=== PATIENT | female | born 1990 | race Caucasian/White ===

== ENCOUNTER 2016-11-15 05:12 | Emergency (ER) | payer MEDICAID ==
[2016-11-15 06:06] LABS: CHLORIDE,CL 100 mEq/L (98-106); SODIUM,NA 137 mEq/L (136-145)
[2016-11-15] MEDS ORDERED: Ondansetron 4 MG/2 ML SDV ONE (06:16)
[2016-11-15] MEDS ORDERED: HYDROmorphone 1 MG/ML Syringe IVPUSH ONE (06:19)
[2016-11-15] MEDS ORDERED: Ondansetron 4 MG in Sodium Chloride 0.9% 50 ML IV ONE (06:20)
[2016-11-15] MEDS ORDERED: Ondansetron 4 MG/2 ML SDV IVPUSH ONE (06:32)
--- NOTE | 2016-11-15 06:34 | EDM.PDOC ---
ED HPI GENERAL MEDICAL PROBLEM - General Chief Complaint: Abdominal Pain Stated Complaint: RLQ pain Time Seen by Provider: 11/15/16 05:28 Source of Information: Reports: Patient History Limitations: Reports: No Limitations - History of Present Illness INITIAL COMMENTS - FREE TEXT/NARRATIVE: Started having severe right lower quadrant abd pain 4 hours ago that is worsening Onset: Today, Gradual Location: Reports: Abdomen Quality: Reports: Sharp, Stabbing Severity: Severe Worsens with: Reports: None Associated Symptoms: Reports: No Other Symptoms Right Lower Abdominal Pain Score (Numeric/FACES): 6 - Related Data Allergies Allergy/AdvReac Type Severity Reaction Status Date / Time No Known Allergies Allergy Verified 11/15/16 05:12 Home Meds: Home Meds . [No Known Home Meds] 11/15/16 [History] Past Medical History HEENT History: Reports: None Cardiovascular History: Reports: Arrhythmia, Hypertension Gastrointestinal History: Reports: GERD, Hiatal Hernia, PUD Genitourinary History: Reports: None [employer]ING [employer] History: Reports: Spontaneous , Other (See Below) Other OB/BYN History: x4. 3 living 1 miscarriage Neurological History: Reports: Headaches, Chronic Psychiatric History: Reports: Anxiety, Depression - Past Surgical History HEENT Surgical History: Reports: Tonsillectomy GI Surgical History: Reports: Cholecystectomy Female Surgical History: Reports: Section, Other (See Below) Other Female Surgeries/Procedures: pt reported bleeding irregularly for past 3 months Neurological Surgical History: Reports: None Social & Family History - Family History Family Medical History: Noncontributory - Tobacco Use Smoking Status *Q: Current Every Day Smoker Years of Tobacco use: 10 Packs/Tins Daily: 0.5 - Alcohol Use Days Per Week of Alcohol Use: 2 Number of Drinks Per Day: 2 Total Drinks Per Week: 4 - Recreational Drug Use Recreational Drug Use: No ED ROS GENERAL - Review of Systems Review Of Systems: ROS reveals no pertinent complaints other than HPI. ED EXAM, GI/ABD - Physical Exam Exam: See Below Text/Narrative:: patient is writhing in pain, she has abdominal guarding, and rebound tenderness. Exam Limited By: No Limitations General Appearance: Alert Throat/Mouth: Normal Inspection Head: Atraumatic Neck: Normal Inspection Respiratory/Chest: No Respiratory Distress Cardiovascular: Normal Peripheral Pulses GI/Abdominal: Absent Bowel Sounds, Tenderness, Guarding, Rebound, Rigidity Rectal (Female) Exam: Normal Exam Back Exam: Normal Inspection Extremities: Normal Inspection Neurological: Alert, Oriented Skin Exam: Warm, Dry Course - Vital Signs Last Recorded V/S: Last Vital Signs Temp 97.1 F 11/15/16 05:14 Pulse 91 11/15/16 05:14 Resp 22 H 11/15/16 05:14 BP 172/107 H 11/15/16 05:14 Pulse Ox 98 11/15/16 05:14 - Orders/Labs/Meds Orders: Active Orders 24 hr Category Date Time Status Ondansetron [Zofran] 4 mg Med 11/15/16 06:20 Ordered Sodium Chloride 0.9% [Normal Saline] 50 ml IV Q8H Medication Orders Ondansetron HCl 4 mg/ Sodium (Chloride) 52 mls @ 100 mls/hr IV Q8H ONE Stop: 11/15/16 06:51 Labs: Laboratory Tests 11/15/16 11/15/16 11/15/16 Range/Units 05:45 05:45 05:55 WBC 13.3 H (5.0-10.0) 10^3/uL RBC 4.30 (4.00-5.50) 10^6/uL Hgb 13.2 (12.0-16.0) g/dL Hct 40.0 (37.0-47.0) % MCV 93.0 (82.0-94.0) fL MCH 30.7 (27.0-32.0) pg MCHC 33.0 (33.0-38.0) g/dL RDW Coeff of Sarah 14.7 (11.0-15.0) % Plt Count 417 H (150-400) 10^3/uL Neut % (Auto) 61.2 (35-85) % Lymph % (Auto) 25.0 (10-55) % [place] % (Auto) 9.4 (0-16) % Eos % (Auto) 3.9 (0-5) % Baso % (Auto) 0.5 (0-3) % Neut # (Auto) 8.12 H (1.80-7.00) 10^3/uL Lymph # (Auto) 3.31 (1.00-4.80) 10^3/uL [place] # (Auto) 1.24 H (0.00-0.80) 10^3/uL Eos # (Auto) 0.52 H (0.00-0.45) 10^3/uL Baso # (Auto) 0.06 10^3/uL Sodium 137 (136-145) mEq/L Potassium 3.9 (3.5-5.0) mEq/L Chloride 100 (98-106) mEq/L Carbon Dioxide 31 (21-32) mmol/L BUN 18 D (7-18) mg/dL Creatinine 0.7 (0.6-1.0) mg/dL Est Cr Clr Drug Dosing 95.48 mL/min Estimated GFR (MDRD) > 60 (>=60) mL/min Glucose 87 (75-99) mg/dL Calcium 9.7 (8.4-10.1) mg/dL Total Bilirubin 0.3 (0.0-1.0) mg/dL AST 8 L (15-37) U/L ALT 22 (12-78) U/L Alkaline Phosphatase 102 (46-116) U/L Total Protein 6.9 (6.4-8.2) g/dL Albumin 3.8 (3.4-5.0) g/dL Amylase 38 (25-115) U/L Urine Color Yellow (YELLOW) Urine Appearance Slightly cloudy (CLEAR) Urine pH 6.0 (4.5-8.0) Ur Specific [place] 1.017 (1.003-1.020) Urine Protein Negative (NEGATIVE) mg/dL Urine Glucose (UA) Negative (NEGATIVE) mg/dL Urine Ketones Negative (NEGATIVE) mg/dL Urine Occult Blood Negative (NEGATIVE) Urine Nitrite Negative (NEGATIVE) Urine Bilirubin Negative (NEGATIVE) Urine Urobilinogen 0.2 (0.2-1.0) EU/dL Ur Leukocyte Esterase Negative (NEGATIVE) Urine RBC Not seen (0-5) /HPF Urine WBC 0-5 (0-5) /HPF Ur Squamous Epith Cells Few H (NOT SEEN) /HPF Amorphous Sediment Few H (NOT SEEN) /HPF Urine HCG, Qual 11/15/16 Range/Units 05:55 WBC (5.0-10.0) 10^3/uL RBC (4.00-5.50) 10^6/uL Hgb (12.0-16.0) g/dL Hct (37.0-47.0) % MCV (82.0-94.0) fL MCH (27.0-32.0) pg MCHC (33.0-38.0) g/dL RDW Coeff of Sarah (11.0-15.0) % Plt Count (150-400) 10^3/uL Neut % (Auto) (35-85) % Lymph % (Auto) (10-55) % [place] % (Auto) (0-16) % Eos % (Auto) (0-5) % Baso % (Auto) (0-3) % Neut # (Auto) (1.80-7.00) 10^3/uL Lymph # (Auto) (1.00-4.80) 10^3/uL [place] # (Auto) (0.00-0.80) 10^3/uL Eos # (Auto) (0.00-0.45) 10^3/uL Baso # (Auto) 10^3/uL Sodium (136-145) mEq/L Potassium (3.5-5.0) mEq/L Chloride (98-106) mEq/L Carbon Dioxide (21-32) mmol/L BUN (7-18) mg/dL Creatinine (0.6-1.0) mg/dL Est Cr Clr Drug Dosing mL/min Estimated GFR (MDRD) (>=60) mL/min Glucose (75-99) mg/dL Calcium (8.4-10.1) mg/dL Total Bilirubin (0.0-1.0) mg/dL AST (15-37) U/L ALT (12-78) U/L Alkaline Phosphatase (46-116) U/L Total Protein (6.4-8.2) g/dL Albumin (3.4-5.0) g/dL Amylase (25-115) U/L Urine Color (YELLOW) Urine Appearance (CLEAR) Urine pH (4.5-8.0) Ur Specific [place] (1.003-1.020) Urine Protein (NEGATIVE) mg/dL Urine Glucose (UA) (NEGATIVE) mg/dL Urine Ketones (NEGATIVE) mg/dL Urine Occult Blood (NEGATIVE) Urine Nitrite (NEGATIVE) Urine Bilirubin (NEGATIVE) Urine Urobilinogen (0.2-1.0) EU/dL Ur Leukocyte Esterase (NEGATIVE) Urine RBC (0-5) /HPF Urine WBC (0-5) /HPF Ur Squamous Epith Cells (NOT SEEN) /HPF Amorphous Sediment (NOT SEEN) /HPF Urine HCG, Qual Negative Meds: Medications Generic Name Dose Route Start Last Admin Trade Name Freq PRN Reason Stop Dose Admin Ondansetron HCl 4 mg/ Sodium 52 mls @ 100 mls/hr 11/15/16 06:20 Chloride IV 11/15/16 06:51 Q8H ONE Discontinued Medications Generic Name Dose Route Start Last Admin Trade Name Freq PRN Reason Stop Dose Admin Hydromorphone HCl 1 mg 11/15/16 06:19 Dilaudid IVPUSH 11/15/16 06:20 ONETIME ONE Departure - Departure Time of Disposition: 06:31 (Will transfer to [facility] for CT of abd/pelvis) Disposition: DC/Tfer to Acute Hospital 02 Condition: Fair Clinical Impression: Abdominal pain - Discharge Information Forms: ED Department Discharge - My Orders Last 24 Hours: My Active Orders 11/15/16 06:20 Ondansetron [Zofran] 4 mg Sodium Chloride 0.9% [Normal Saline] 50 ml IV Q8H - Assessment/Plan Last 24 Hours: My Active Orders 11/15/16 06:20 Ondansetron [Zofran] 4 mg Sodium Chloride 0.9% [Normal Saline] 50 ml IV Q8H
[2016-11-15 06:46] VITALS: BP 177/91
[2016-11-15] MEDS ORDERED: Acetaminophen/HYDROcodone 325-5 MG Tab PO ONE (07:08)
== END 2016-11-15 07:19 | disposition critical access hospital (66) ==
LOC: CC.ED 05:12
DX: R10.31 Right lower quadrant pain (principal); I10 Essential (primary) hypertension; K21.9 Gastro-esophageal reflux disease without esophagitis; F17.210 Nicotine dependence, cigarettes, uncomplicated; Z98.890 Other specified postprocedural states; Z90.49 Acquired absence of other specified parts of digestive tract
CPT/HCPCS: 80053; 81001; 81025; 82150; 85025; 96374; 96375; 99284; A9270; J1170; J2405

== ENCOUNTER 2016-12-09 15:15 | Emergency (ER) | payer MEDICAID ==
[2016-12-09] MEDS ORDERED: Lidocaine 1% 20 ML MDV ONE (15:24)
[2016-12-09 15:41] VITALS: BP 142/87
[2016-12-09] MEDS ORDERED: Lidocaine 1% 20 ML MDV INJECT ONE (16:01)
[2016-12-09] MEDS ORDERED: Bacitracin/Neomycin/Polymyxin B Oint 0.9 GM U/D Packet TOP ONE (16:01)
--- NOTE | 2016-12-09 16:10 | EDM.PDOC ---
ED HPI GENERAL MEDICAL PROBLEM - General Chief Complaint: Laceration Stated Complaint: knee lac Time Seen by Provider: 12/09/16 15:45 Source of Information: Reports: Patient History Limitations: Reports: No Limitations - History of Present Illness INITIAL COMMENTS - FREE TEXT/NARRATIVE: Was going down a homemade slip and slide and sustained a laceration to her right distal leg. It is 4 cm in length in a slight v shape. Minimal amount of bleeding noted. It is gapping at this time. Also has pain in the right great toe. Is able to move it but does cause discomfort. Location: Reports: Lower Extremity, Right Quality: Reports: Ache - Related Data Allergies Allergy/AdvReac Type Severity Reaction Status Date / Time No Known Allergies Allergy Verified 12/09/16 15:19 Home Meds: Home Meds . [No Known Home Meds] 11/15/16 [History] Past Medical History HEENT History: Reports: None Cardiovascular History: Reports: Arrhythmia, Hypertension Gastrointestinal History: Reports: GERD, Hiatal Hernia, PUD Genitourinary History: Reports: None [employer] History: Reports: Spontaneous , Other (See Below) Other OB/BYN History: x4. 3 living 1 miscarriage Neurological History: Reports: Headaches, Chronic Psychiatric History: Reports: Anxiety, Depression - Past Surgical History HEENT Surgical History: Reports: Tonsillectomy GI Surgical History: Reports: Cholecystectomy Female Surgical History: Reports: Section, Other (See Below) Other Female Surgeries/Procedures: pt reported bleeding irregularly for past 3 months Neurological Surgical History: Reports: None Social & Family History - Family History Family Medical History: Noncontributory - Tobacco Use Smoking Status *Q: Current Every Day Smoker Years of Tobacco use: 10 Packs/Tins Daily: 0.5 - Alcohol Use Days Per Week of Alcohol Use: 2 Number of Drinks Per Day: 2 Total Drinks Per Week: 4 - Recreational Drug Use Recreational Drug Use: No ED ROS GENERAL - Review of Systems Review Of Systems: See Below Constitutional: Denies: Fever, Chills Musculoskeletal: Reports: Leg Pain Skin: Reports: Wound ED EXAM, SKIN/RASH Exam: See Below Exam Limited By: No Limitations General Appearance: Alert, WD/WN, Mild Distress Ears: Normal External Exam, Normal Canal, Normal TMs Nose: Normal Inspection, Normal Mucosa Throat/Mouth: Normal Inspection, Normal Oropharynx, No Airway Compromise Neck: Normal Inspection, Supple Respiratory/Chest: No Respiratory Distress, Lungs Clear, Normal Breath Sounds Cardiovascular: Regular Rate, Rhythm Extremities: Other (right great toe is tender but is able to go through ROM without difficulty.) Neurological: Alert, Oriented Skin: Warm, Dry, Wound/Incision (4 cm laceration noted to the anterior lower leg below the knee. It is in a slight v shape and gapping open.) ED SKIN PROCEDURES - Laceration/Wound Repair Right Anterior Distal Leg Lac/Wound length In cm: 4 Appearance: Irregular, Clean Distal NVT: Neuro & Vascular Intact Anesthetic Type: Local Local Anesthesia - Lidocaine (Xylocaine): 1% Plain Local Anesthetic Volume: 3cc Exploration/Debridement/Repair: In a Bloodless Field Suture Size: 4-0 # of Sutures: 9 Suture Type: Nylon, Interrupted Sterile Dressing Applied: Nurse Tetanus Status Addressed: Yes Complications: No Course - Vital Signs Last Recorded V/S: Last Vital Signs Temp 98.2 F 12/09/16 15:35 Pulse 82 12/09/16 15:35 Resp 18 12/09/16 15:35 BP 142/87 H 12/09/16 15:35 Pulse Ox 98 12/09/16 15:35 - Orders/Labs/Meds Meds: Medications Discontinued Medications Generic Name Dose Route Start Last Admin Trade Name [place] PRN Reason Stop Dose Admin Lidocaine HCl Confirm 12/09/16 15:24 12/09/16 16:02 Xylocaine 1% Administered 12/09/16 15:25 Not Given Dose 20 ml .ROUTE .STK-MED ONE Lidocaine HCl 20 ml 12/09/16 16:01 12/09/16 16:02 Xylocaine 1% INJECT 12/09/16 16:02 20 ml ONETIME ONE Administration Neomycin/Polymyxin/Bacitracin 1 each 12/09/16 16:01 12/09/16 16:02 Triple Antibiotic Oint TOP 12/09/16 16:02 1 each ONETIME ONE Administration Departure - Departure Time of Disposition: 16:08 Disposition: Home, Self-Care 01 Condition: Good Clinical Impression: Laceration of right lower leg Qualifiers: Encounter type: initial encounter Qualified Code(s): S81.811A - Laceration without foreign body, right lower leg, initial encounter - Discharge Information Instructions: Laceration Care, Adult, [id number] Referrals: Provider,Unknown [Ordering Only Provider] - Forms: ED Department Discharge Additional Instructions: keep dry and clean. May shower but do not soak it. cover with antibiotic ointment and dressing appt in clinic in about 10 days to have sutures out If any signs of infection then recheck sooner
== END 2016-12-09 16:15 | disposition home or self-care (01) ==
LOC: CC.ED 15:15
DX: S81.811A Laceration without foreign body, right lower leg, initial encounter (principal); I10 Essential (primary) hypertension; K21.9 Gastro-esophageal reflux disease without esophagitis; F17.210 Nicotine dependence, cigarettes, uncomplicated; Z98.890 Other specified postprocedural states; Z90.49 Acquired absence of other specified parts of digestive tract; W01.0XXA Fall on same level from slipping, tripping and stumbling without subsequent striking against object, initial encounter
CPT/HCPCS: 12002; 99282

== ENCOUNTER 2016-12-22 11:50 | Emergency (ER) | payer MEDICAID ==
[2016-12-22 11:54] VITALS: BP 122/74
[2016-12-22] MEDS ORDERED: Lactated Ringers 1,000 ML IV SCH (12:30)
[2016-12-22 12:40] LABS: CHLORIDE,CL 105 mEq/L (98-106); SODIUM,NA 138 mEq/L (136-145)
--- NOTE | 2016-12-22 14:24 | EDM.PDOC ---
ED HPI GENERAL MEDICAL PROBLEM - General Chief Complaint: General Stated Complaint: fainted, fall Time Seen by Provider: 12/22/16 12:16 Source of Information: Reports: Patient, EMS History Limitations: Reports: No Limitations - History of Present Illness INITIAL COMMENTS - FREE TEXT/NARRATIVE: Patient presents to ED after a syncopal episode while at the bank. Patient states she was there and standing at the [employer] desk. States she started to feel lightheaded and got warm prior to the event. Did not sustain any injuries but admits her back is somewhat sore now. She was in the clinic this am and had a confirmed test. Does admit that she has been very tired lately. Denies being ill as of late. No fevers. Did eat breakfast this am. States still feels somewhat lightheaded. Is very tearful. Admits that she is unsure physically how she will handle another . She relates that she had a difficult last time and was told she shouldn't have any more children but has not taken any specific precautions to prevent this. She states she was seen in [place] a month ago and had an ovarian cyst and states she was told she may need to have a hysterectomy so was not expecting this news today. Onset: Today, Sudden Duration: Minutes:, Waxing/Waning Location: Reports: Generalized Severity: Mild Improves with: Reports: Rest Associated Symptoms: Reports: Syncope, Weakness. Denies: Confusion, Chest Pain , Headaches, Malaise, Nausea/Vomiting Neck Pain Score (Numeric/FACES): 6 - Related Data Allergies Allergy/AdvReac Type Severity Reaction Status Date / Time No Known Allergies Allergy Verified 12/22/16 11:55 Home Meds: Home Meds . [No Known Home Meds] 11/15/16 [History] Past Medical History HEENT History: Reports: None Cardiovascular History: Reports: Arrhythmia, Hypertension Gastrointestinal History: Reports: GERD, Hiatal Hernia, PUD Genitourinary History: Reports: None YARD PERSON History: Reports: , Spontaneous , Other (See Below) Other OB/BYN History: x5. 3 living 1 miscarriage Neurological History: Reports: Headaches, Chronic, Seizure, Other (See Below) Other Neuro History: reports dizziness happesn oftern Psychiatric History: Reports: Anxiety, Depression - Infectious Disease History Infectious Disease History: Reports: Chicken Pox - Past Surgical History HEENT Surgical History: Reports: Tonsillectomy Cardiovascular Surgical History: Reports: None GI Surgical History: Reports: Cholecystectomy Female Surgical History: Reports: Section, Other (See Below) Other Female Surgeries/Procedures: cyst burst on ovary about 1 month ago Neurological Surgical History: Reports: None Social & Family History - Family History Family Medical History: Noncontributory - Tobacco Use Smoking Status *Q: Current Every Day Smoker Years of Tobacco use: 8 Packs/Tins Daily: 0.5 - Alcohol Use Days Per Week of Alcohol Use: 2 Number of Drinks Per Day: 2 Total Drinks Per Week: 4 - Recreational Drug Use Recreational Drug Use: Yes Drug Use in Last 12 Months: Yes Recreational Drug Type: Reports: Marijuana/Hashish Recreational Drug Use Frequency: Not Used In Over 1 Month ED ROS GENERAL - Review of Systems Review Of Systems: See Below Constitutional: Reports: Malaise, Fatigue. Denies: Fever, Chills, Decreased Appetite HEENT: Reports: Vertigo. Denies: Ear Discharge, Ear Pain, Sinus Problem, Throat Pain, Throat Swelling, Vision Change Respiratory: Denies: Shortness of Breath, Cough Cardiovascular: Reports: Lightheadedness. Denies: Chest Pain, Edema Endocrine: Reports: Fatigue GI/Abdominal: Denies: Abdominal Pain, Diarrhea, Hematochezia, Melena, Nausea, Vomiting : Reports: No Symptoms Musculoskeletal: Reports: Back Pain Skin: Reports: No Symptoms Neurological: Reports: Dizziness, Weakness Psychiatric: Reports: No Symptoms ED EXAM, GENERAL - Physical Exam Exam: See Below Exam Limited By: No Limitations General Appearance: Alert, WD/WN, No Apparent Distress Eye Exam: Bilateral Eye: EOMI, PERRL Ears: Normal External Exam, Normal TMs Nose: Normal Inspection, Normal Mucosa, No Blood Throat/Mouth: Normal Inspection, Normal Oropharynx Head: Normocephalic Neck: Normal Inspection, Supple, Non-Tender Respiratory/Chest: No Respiratory Distress, Lungs Clear, Normal Breath Sounds Cardiovascular: Regular Rate, Rhythm GI/Abdominal: Normal Bowel Sounds, Soft, Non-Tender Back Exam: Normal Inspection, Full Range of Motion Extremities: Normal Inspection, Normal Range of Motion Neurological: Alert, Oriented, CN II-XII Intact, No Motor/Sensory Deficits Psychiatric: Tearful Skin Exam: Warm, Dry Course - Vital Signs Last Recorded V/S: Last Vital Signs Temp 97.6 F 12/22/16 11:51 Pulse 92 12/22/16 11:51 Resp 16 12/22/16 11:51 BP 122/74 12/22/16 11:51 Pulse Ox 98 12/22/16 11:51 - Orders/Labs/Meds Orders: Active Orders 24 hr Category Date Time Status Lactated Ringers [Ringers, Lactated] 1,000 ml Med 12/22/16 12:30 Active IV ASDIRECTED Medication Orders Lactated Ringer's (Ringers, Lactated) 1,000 mls @ 250 mls/hr IV ASDIRECTED BELA Last Infusion: 12/22/16 14:45 Dose: 250 mls/hr Admin: 12/22/16 12:36 Dose: 125 mls/hr Labs: Laboratory Tests 12/22/16 12/22/16 12/22/16 Range/Units 12:31 12:31 14:45 WBC 10.2 H (5.0-10.0) 10^3/uL RBC 4.00 (4.00-5.50) 10^6/uL Hgb 12.3 (12.0-16.0) g/dL Hct 37.3 (37.0-47.0) % MCV 93.3 (82.0-94.0) fL MCH 30.8 (27.0-32.0) pg MCHC 33.0 (33.0-38.0) g/dL RDW Coeff of Sarah 14.6 (11.0-15.0) % Plt Count 328 (150-400) 10^3/uL Neut % (Auto) 67.1 (35-85) % Lymph % (Auto) 21.6 (10-55) % [place] % (Auto) 8.3 (0-16) % Eos % (Auto) 2.6 (0-5) % Baso % (Auto) 0.4 (0-3) % Neut # (Auto) 6.83 (1.80-7.00) 10^3/uL Lymph # (Auto) 2.20 (1.00-4.80) 10^3/uL [place] # (Auto) 0.84 H (0.00-0.80) 10^3/uL Eos # (Auto) 0.26 (0.00-0.45) 10^3/uL Baso # (Auto) 0.04 10^3/uL Sodium 138 (136-145) mEq/L Potassium 3.7 (3.5-5.0) mEq/L Chloride 105 (98-106) mEq/L Carbon Dioxide 25 (21-32) mmol/L BUN 13 (7-18) mg/dL Creatinine 0.7 (0.6-1.0) mg/dL Est Cr Clr Drug Dosing 95.48 mL/min Estimated GFR (MDRD) > 60 (>=60) mL/min Glucose 106 H (75-99) mg/dL Calcium 8.8 (8.4-10.1) mg/dL Urine Color Yellow (YELLOW) Urine Appearance Clear (CLEAR) Urine pH 6.5 (4.5-8.0) Ur Specific [place] 1.010 (1.003-1.020) Urine Protein Negative (NEGATIVE) mg/dL Urine Glucose (UA) Negative (NEGATIVE) mg/dL Urine Ketones Negative (NEGATIVE) mg/dL Urine Occult Blood Negative (NEGATIVE) Urine Nitrite Negative (NEGATIVE) Urine Bilirubin Negative (NEGATIVE) Urine Urobilinogen 0.2 (0.2-1.0) EU/dL Ur Leukocyte Esterase Negative (NEGATIVE) Urine RBC Not seen (0-5) /HPF Urine WBC 0-5 (0-5) /HPF Ur Squamous Epith Cells Occasional H (NOT SEEN) /HPF Meds: Medications Generic Name Dose Route Start Last Admin Trade Name Freq PRN Reason Stop Dose Admin Lactated Ringer's 1,000 mls @ 250 mls/hr 12/22/16 12:30 12/22/16 14:45 Ringers, Lactated IV 250 mls/hr ASDIRECTED BELA Infusion - Re-Assessments/Exams Free Text/Narrative Re-Assessment/Exam: 12/22/16 1300-Patient resting well. Labs reviewed and are normal. Very tearful in dealing with the circumstances from today. Has not voided yet. IV fluids infusing. 12/22/16 15:15 Urine clear. Doing well. Departure - Departure Time of Disposition: 15:15 Disposition: Home, Self-Care 01 Condition: Good Clinical Impression: Syncope - Discharge Information Forms: ED Department Discharge Additional Instructions: 1. Rest 2. Push fluids 3. Small frequent meals 4. vitamins 5. Follow up with PCP if any ongoing concerns. - My Orders Last 24 Hours: My Active Orders 12/22/16 12:30 Lactated Ringers [Ringers, Lactated] 1,000 ml IV ASDIRECTED - Assessment/Plan Last 24 Hours: My Active Orders 12/22/16 12:30 Lactated Ringers [Ringers, Lactated] 1,000 ml IV ASDIRECTED
== END 2016-12-22 15:48 | disposition home or self-care (01) ==
LOC: CC.ED 11:50
DX: R55 Syncope and collapse (principal); K21.9 Gastro-esophageal reflux disease without esophagitis; I10 Essential (primary) hypertension; F17.210 Nicotine dependence, cigarettes, uncomplicated; Z90.49 Acquired absence of other specified parts of digestive tract
CPT/HCPCS: 80048; 81001; 85025; 93005; 96365; 96366; 99284; J7120; 36415; 96360; 96361

== ENCOUNTER 2017-02-16 09:09 | Emergency (ER) | payer SELFPAY ==
[2017-02-16 09:18] VITALS: BP 101/78
[2017-02-16] MEDS ORDERED: fentaNYL 100 MCG/2 ML SDV IM ONE (09:35)
--- NOTE | 2017-02-16 10:49 | EDM.PDOC ---
ED HPI GENERAL MEDICAL PROBLEM - General Chief Complaint: PICKING TECH Problem Stated Complaint: CRAMPS Time Seen by Provider: 02/16/17 09:22 Source of Information: Reports: Patient History Limitations: Reports: No Limitations - History of Present Illness INITIAL COMMENTS - FREE TEXT/NARRATIVE: Patient presents to ED with complaints of heavy vaginal bleeding and cramping. Admits to an at [facility] in [place] 3 weeks ago. Had minimal spotting right after the procedure. Started having heavy bleeding 3 days ago but today it is much worse and the cramping is more severe. States she is changing her tampon every 1 hour. Denies feeling lightheaded. Denies nausea. Does admit to feeling very anxious. Onset: Today Onset Date: 02/13/17 Duration: Day(s): Location: Reports: Pelvis Quality: Reports: Stabbing Severity: Moderate Associated Symptoms: Reports: Other (anxiety). Denies: Nausea/Vomiting Pelvic Pain Score (Numeric/FACES): 7 - Related Data Allergies Allergy/AdvReac Type Severity Reaction Status Date / Time No Known Allergies Allergy Verified 02/16/17 09:18 Home Meds: Home Meds . [No Known Home Meds] 11/15/16 [History] Past Medical History HEENT History: Reports: None Cardiovascular History: Reports: Arrhythmia, Hypertension Gastrointestinal History: Reports: GERD, Hiatal Hernia, PUD Genitourinary History: Reports: None PICKING TECH History: Reports: , Spontaneous , Other (See Below) Other OB/BYN History: x5. 3 living 1 miscarriage Neurological History: Reports: Headaches, Chronic, Seizure, Other (See Below) Other Neuro History: reports dizziness happesn oftern Psychiatric History: Reports: Anxiety, Depression - Infectious Disease History Infectious Disease History: Reports: Chicken Pox - Past Surgical History HEENT Surgical History: Reports: Tonsillectomy Cardiovascular Surgical History: Reports: None GI Surgical History: Reports: Cholecystectomy Female Surgical History: Reports: Section, D&C, Other (See Below) Other Female Surgeries/Procedures: cyst burst on ovary about 1 month ago Neurological Surgical History: Reports: None Social & Family History - Family History Family Medical History: Noncontributory - Tobacco Use Smoking Status *Q: Current Every Day Smoker Years of Tobacco use: 10 Packs/Tins Daily: 1 - Caffeine Use Caffeine Use: Reports: Soda - Alcohol Use Days Per Week of Alcohol Use: 2 Number of Drinks Per Day: 2 Total Drinks Per Week: 4 - Recreational Drug Use Recreational Drug Use: No Drug Use in Last 12 Months: Yes Recreational Drug Type: Reports: Marijuana/Hashish Recreational Drug Use Frequency: Not Used In Over 1 Month ED ROS GENERAL - Review of Systems Review Of Systems: See Below Constitutional: Reports: Weakness. Denies: Fever, Chills, Malaise, Decreased Appetite HEENT: Reports: No Symptoms Respiratory: Denies: Shortness of Breath, Cough Cardiovascular: Denies: Chest Pain, Edema, Lightheadedness Endocrine: Reports: Fatigue GI/Abdominal: Reports: Abdominal Pain. Denies: Nausea, Vomiting : Reports: No Symptoms Musculoskeletal: Reports: No Symptoms Skin: Reports: No Symptoms Psychiatric: Reports: Anxiety ED EXAM, RENAL/ - Physical Exam Exam: See Below Exam Limited By: No Limitations General Appearance: Alert, WD/WN, Mild Distress Ears: Normal External Exam, Normal TMs Nose: Normal Inspection, Normal Mucosa, No Blood Throat/Mouth: Normal Inspection, Normal Oropharynx Head: Normocephalic Neck: Normal Inspection, Supple, Non-Tender Respiratory/Chest: No Respiratory Distress, Lungs Clear, Normal Breath Sounds Cardiovascular: Regular Rate, Rhythm GI/Abdominal: Normal Bowel Sounds, Soft, Tender (suprapubic tenderness) Extremities: Normal Inspection, No Pedal Edema Neurological: Alert, Oriented Skin Exam: Warm, Dry Course - Vital Signs Last Recorded V/S: Last Vital Signs Temp 97.5 F 02/16/17 09:14 Pulse 111 H 02/16/17 09:14 Resp 22 H 02/16/17 09:14 BP 101/78 02/16/17 09:14 Pulse Ox 100 02/16/17 09:14 - Orders/Labs/Meds Orders: Active Orders 24 hr Category Date Time Status Transvaginal Non OB [US] Stat Exams 02/16/17 09:13 Taken Labs: Laboratory Tests 02/16/17 Range/Units 10:19 WBC 11.2 H (5.0-10.0) 10^3/uL RBC 4.21 (4.00-5.50) 10^6/uL Hgb 13.2 (12.0-16.0) g/dL Hct 40.0 (37.0-47.0) % MCV 95.0 H (82.0-94.0) fL MCH 31.4 (27.0-32.0) pg MCHC 33.0 (33.0-38.0) g/dL RDW Coeff of Sarah 14.4 (11.0-15.0) % Plt Count 359 (150-400) 10^3/uL Neut % (Auto) 67.3 (35-85) % Lymph % (Auto) 22.2 (10-55) % Richardson % (Auto) 6.7 (0-16) % Eos % (Auto) 3.2 (0-5) % Baso % (Auto) 0.6 (0-3) % Neut # (Auto) 7.52 H (1.80-7.00) 10^3/uL Lymph # (Auto) 2.48 (1.00-4.80) 10^3/uL Richardson # (Auto) 0.75 (0.00-0.80) 10^3/uL Eos # (Auto) 0.36 (0.00-0.45) 10^3/uL Baso # (Auto) 0.07 10^3/uL Meds: Medications Discontinued Medications Generic Name Dose Route Start Last Admin Trade Name Kbq PRN Reason Stop Dose Admin Fentanyl 50 mcg 02/16/17 09:35 02/16/17 09:40 Sublimaze IM 02/16/17 09:36 50 mcg ONETIME ONE Administration - Re-Assessments/Exams Free Text/Narrative Re-Assessment/Exam: 02/16/17 Pelvic ultrasound is not noted to be abnormal per tech, no retained products. Hemoglobin 13.4, stable. Departure - Departure Time of Disposition: 10:47 Disposition: Home, Self-Care 01 Condition: Fair Clinical Impression: Pain in pelvis - Discharge Information Referrals: Ernie Moreno MD [Primary Care Provider] - Forms: ED Department Discharge Additional Instructions: 1. Push fluids 2. [place] 5/325 1-2 tabs every 6 hours for pain as needed 3. If bleeding worsens or do not feel improvement in the next 24 hours, need to return for further treatment 4. Contact us with any questions - My Orders Last 24 Hours: My Active Orders 02/16/17 09:13 Transvaginal Non OB [US] Stat - Assessment/Plan Last 24 Hours: My Active Orders 02/16/17 09:13 Transvaginal Non OB [US] Stat
== END 2017-02-16 10:55 | disposition home or self-care (01) ==
LOC: CC.ED 09:09
DX: R10.2 Pelvic and perineal pain (principal); F17.210 Nicotine dependence, cigarettes, uncomplicated
CPT/HCPCS: 36415; 76830; 85025; 96372; 99284; J3010

== ENCOUNTER 2022-09-07 06:54 | Emergency (ER) | payer MEDICAID ==
[2022-09-07] MEDS ORDERED: Sodium Chloride 0.9% 1,000 ML IV ONE ×2 (07:05→08:11)
[2022-09-07] MEDS ORDERED: Ondansetron 4 MG/2 ML SDV IVPUSH STA (07:07)
[2022-09-07 07:32] VITALS: BP 125/95; PULSE 80
[2022-09-07 07:37] LABS: BASOPHILS ABSOLUTE AUTO 0.03 10^3/uL (0.00-0.50); BASOPHILS PERCENT AUTO 0.2 % (0-1); EOSINOPHILS ABSOLUTE AUTO 0.03 10^3/uL (0.00-1.50); EOSINOPHILS PERCENT AUTO 0.2 % (0-6); HEMOGLOBIN 11.8 g/dL (12.0-16.0); IMMATURE GRAN ABSOLUTE AUTO 0.05 10^3/uL (0.00-0.49); IMMATURE GRAN PERCENT AUTO 0.3 % (0.0-4.9); LYMPHOCYTES ABSOLUTE AUTO 1.75 10^3/uL (0.60-5.00); LYMPHOCYTES PERCENT AUTO 9.9 % (24-44); MEAN CORPUSCULAR HEMOGLOBIN 33.1 pg (27.0-32.0); MEAN CORPUSCULAR HGB CONC 34.7 g/dL (32.0-36.0); MEAN CORPUSCULAR VOLUME 95.2 fL (83.0-97.0); MONOCYTES ABSOLUTE AUTO 0.84 10^3/uL (0.00-1.50); MONOCYTES PERCENT AUTO 4.8 % (0-10); NEUTROPHILS ABSOLUTE AUTO 14.97 x10^3/uL (1.80-8.00); NEUTROPHILS PERCENT AUTO 84.6 % (41-71); PLATELET COUNT,PLT 430 10^3/uL (150-400); RED BLOOD CELL COUNT 3.57 x10^6/uL (4.00-5.50); WHITE BLOOD CELL COUNT,WBC 17.7 10^3/uL (4.0-11.0)
[2022-09-07 07:42] LABS: ALANINE AMINOTRANSFERASE,ALT 21 U/L (12-78); ALBUMIN 2.7 g/dL (3.4-5.0); ALKALINE PHOSPHATASE 103 U/L (46-116); ASPARTATE AMNIOTRANSFERASE,AST 12 U/L (15-37); BILIRUBIN TOTAL 0.3 mg/dL (0.0-1.0); BLOOD UREA NITROGEN,BUN 8 mg/dL (7-18); CALCIUM 8.4 mg/dL (8.4-10.1); CARBON DIOXIDE,CO2 22 mmol/L (21-32); CHLORIDE,CL 101 mEq/L (98-106); CREATININE 0.5 mg/dL (0.6-1.0); EST CRCL DRUG DOSING (CG) 120.76 mL/min; GLUCOSE RANDOM 121 mg/dL (75-99); POTASSIUM,K 3.6 mEq/L (3.5-5.0); PROTEIN TOTAL,TP 6.2 g/dL (6.4-8.2); SODIUM,NA 137 mEq/L (136-145)
[2022-09-07 07:43] LABS: C-REACTIVE PROTEIN < 0.2 mg/dL (0.2-0.8); ESTIMATED GFR 127 mL/min (>=60)
[2022-09-07 08:55] LABS: APPEARANCE,URINE CLOUDY (CLEAR); BILIRUBIN,URINE NEGATIVE (NEGATIVE); COLOR,URINE YELLOW (YELLOW); GLUCOSE,URINE NEGATIVE (NEGATIVE); KETONES,URINE 80 mg/dL (NEGATIVE); LEUKOCYTE ESTERASE,URINE NEGATIVE (NEGATIVE); NITRITE,URINE NEGATIVE (NEGATIVE); OCCULT BLOOD,URINE NEGATIVE (NEGATIVE); PROTEIN,URINE 100 mg/dL (NEGATIVE)
[2022-09-07 09:01] LABS: BACTERIA,URINE FEW /HPF (NOT SEEN); EPITHELIAL CELLS,URINE MODERATE /HPF (NOT SEEN); MUCUS,URINE FEW /HPF (NOT SEEN); RBC,URINE NOT SEEN /HPF (0-5); WBC,URINE 0-5 /HPF (0-5)
== END 2022-09-07 09:25 | disposition home or self-care (01) ==
LOC: CC.ED 06:54
DX: K52.9 Noninfective gastroenteritis and colitis, unspecified (principal); I10 Essential (primary) hypertension; Z79.899 Other long term (current) drug therapy
CPT/HCPCS: 36415; 80053; 81001; 85025; 86140; 96361; 96374; 99284; 99284-25; J2405; J7030

== ENCOUNTER 2022-11-30 15:41 | Emergency (ER) | payer MEDICAID ==
[2022-11-30] MEDS: Morphine 2 MG/ML SYRINGE IVPUSH STA (16:11)
[2022-11-30] MEDS: Ondansetron 4 MG/2 ML SDV IVPUSH PRN (16:15)
[2022-11-30] MEDS: Sodium Chloride 0.9% 1,000 ML IV ONE (16:15)
[2022-11-30 16:19] LABS: BASOPHILS ABSOLUTE AUTO 0.08 10^3/uL (0.00-0.50); BASOPHILS PERCENT AUTO 0.6 % (0-1); EOSINOPHILS ABSOLUTE AUTO 0.43 10^3/uL (0.00-1.50); EOSINOPHILS PERCENT AUTO 3.1 % (0-6); HEMATOCRIT 34.9 % (37.0-47.0); HEMOGLOBIN 11.5 g/dL (12.0-16.0); IMMATURE GRAN ABSOLUTE AUTO 0.02 10^3/uL (0.00-0.49); IMMATURE GRAN PERCENT AUTO 0.1 % (0.0-4.9); LYMPHOCYTES ABSOLUTE AUTO 1.65 10^3/uL (0.60-5.00); MEAN CORPUSCULAR HEMOGLOBIN 33.4 pg (27.0-32.0); MEAN CORPUSCULAR VOLUME 101.5 fL (83.0-97.0); MONOCYTES ABSOLUTE AUTO 0.76 10^3/uL (0.00-1.50); MONOCYTES PERCENT AUTO 5.5 % (0-10); NEUTROPHILS ABSOLUTE AUTO 10.82 x10^3/uL (1.80-8.00); NEUTROPHILS PERCENT AUTO 78.7 % (41-71); PLATELET COUNT,PLT 598 10^3/uL (150-400); RED BLOOD CELL COUNT 3.44 x10^6/uL (4.00-5.50); WHITE BLOOD CELL COUNT,WBC 13.8 10^3/uL (4.0-11.0)
[2022-11-30 16:31] LABS: ALBUMIN 3.1 g/dL (3.4-5.0); BILIRUBIN TOTAL 0.5 mg/dL (0.0-1.0); C-REACTIVE PROTEIN 2.34 mg/dL (<=0.30); CALCIUM 8.8 mg/dL (8.4-10.1); CREATININE 0.8 mg/dL (0.6-1.0); EST CRCL DRUG DOSING (CG) 75.48 mL/min; POTASSIUM,K 4.2 mEq/L (3.5-5.0); PROTEIN TOTAL,TP 6.5 g/dL (6.4-8.2)
[2022-11-30] MEDS: Iopamidol 755 Mg/ML 100 ML Bottle IVPUSH ONE (16:33)
[2022-11-30 16:34] LABS: LACTIC ACID 1.4 mmol/L (0.4-2.0)
[2022-11-30] MEDS: HYDROmorphone 0.5 MG/0.5 ML Syringe IVPUSH ONE (16:39)
[2022-11-30 16:42] VITALS: BP 134/82; PULSE 75
[2022-11-30] MEDS: Piperacillin/Tazobactam 4.5 GM in Sodium Chloride 0.9% 100 ML IV ONE (17:14)
[2022-11-30 18:02] LABS: APPEARANCE,URINE SLIGHTLY CLOUDY (CLEAR); BILIRUBIN,URINE NEGATIVE (NEGATIVE); COLOR,URINE RED (YELLOW); GLUCOSE,URINE NEGATIVE (NEGATIVE); KETONES,URINE NEGATIVE (NEGATIVE); LEUKOCYTE ESTERASE,URINE LARGE (NEGATIVE); NITRITE,URINE POSITIVE (NEGATIVE); OCCULT BLOOD,URINE LARGE (NEGATIVE); PROTEIN,URINE >=300 mg/dL (NEGATIVE)
[2022-11-30 18:08] LABS: BACTERIA,URINE FEW /HPF (NOT SEEN); EPITHELIAL CELLS,URINE OCCASIONAL /HPF (NOT SEEN); MUCUS,URINE OCCASIONAL /HPF (NOT SEEN); RBC,URINE >100 /HPF (0-5); WBC,URINE 20-30 /HPF (0-5)
[2022-11-30] MEDS: Take Home: Acetaminophen/oxyCODONE 325-5 MG, 2 Tab Pack PO ONE (18:10)
== END 2022-11-30 18:16 | disposition home or self-care (01) ==
LOC: CC.ED 15:41
DX: O86.22 Infection of bladder following delivery (principal); O72.1 Other immediate postpartum hemorrhage; O99.893 Other specified diseases and conditions complicating puerperium; R50.9 Fever, unspecified
CPT/HCPCS: 36415; 74177; 80053; 81001; 81003; 83605; 85025; 86140; 87040; 87086; 96361; 96365; 96375; 99284; 99284-25; A9270-GY; J1170; J2270; J2405; J2543; J3490; J7030; Q9967

== ENCOUNTER 2024-03-07 21:58 | Emergency (ER) | payer MEDICAID ==
[2024-03-07 22:10] VITALS: BP 154/92; PULSE 113
[2024-03-07] MEDS: Bacitracin Oint 1 GM U/D Packet TOP ONE (22:18)
[2024-03-07] MEDS: Lidocaine 1% with EPINEPHrine 1:100,000 10 ML MDV INJECT ONE (22:19)
== END 2024-03-07 22:50 | disposition home or self-care (01) ==
LOC: CC.ED 21:58
DX: S81.811A Laceration without foreign body, right lower leg, initial encounter (principal); Z90.49 Acquired absence of other specified parts of digestive tract; F17.210 Nicotine dependence, cigarettes, uncomplicated; Z79.899 Other long term (current) drug therapy; W01.0XXA Fall on same level from slipping, tripping and stumbling without subsequent striking against object, initial encounter
CPT/HCPCS: 12001; 99282; J3490

== ENCOUNTER 2024-06-18 09:09 | Emergency (ER) | payer MEDICAID ==
[2024-06-18 09:28] VITALS: BP 169/90; PULSE 95
[2024-06-18] MEDS: methylPREDNISolone Sodium Succinate 125 MG/2 ML SDV IM STA (09:38)
[2024-06-18] MEDS: Ketorolac 30 MG/ML SDV IM ONE (09:38)
== END 2024-06-18 10:14 | disposition home or self-care (01) ==
LOC: CC.ED 09:09
DX: M54.41 Lumbago with sciatica, right side (principal); M54.42 Lumbago with sciatica, left side; Z79.899 Other long term (current) drug therapy
CPT/HCPCS: 96372; 99283; J1885; J2919

== ENCOUNTER 2024-10-18 20:05 | Emergency (ER) | payer MEDICAID ==
[2024-10-18 20:41] LABS: BASOPHILS ABSOLUTE AUTO 0.06 10^3/uL (0.00-0.50); BASOPHILS PERCENT AUTO 0.5 % (0-1); EOSINOPHILS ABSOLUTE AUTO 0.27 10^3/uL (0.00-1.50); EOSINOPHILS PERCENT AUTO 2.4 % (0-6); HEMATOCRIT 39.8 % (37.0-47.0); HEMOGLOBIN 13.2 g/dL (12.0-16.0); IMMATURE GRAN ABSOLUTE AUTO 0.02 10^3/uL (0.00-0.49); IMMATURE GRAN PERCENT AUTO 0.2 % (0.0-4.9); LYMPHOCYTES ABSOLUTE AUTO 1.89 10^3/uL (0.60-5.00); LYMPHOCYTES PERCENT AUTO 16.5 % (24-44); MEAN CORPUSCULAR HEMOGLOBIN 32.6 pg (27.0-32.0); MEAN CORPUSCULAR HGB CONC 33.2 g/dL (32.0-36.0); MEAN CORPUSCULAR VOLUME 98.3 fL (83.0-97.0); MONOCYTES ABSOLUTE AUTO 1.15 10^3/uL (0.00-1.50); NEUTROPHILS ABSOLUTE AUTO 8.07 x10^3/uL (1.80-8.00); NEUTROPHILS PERCENT AUTO 70.4 % (41-71); PLATELET COUNT,PLT 291 10^3/uL (150-400); RED BLOOD CELL COUNT 4.05 x10^6/uL (4.00-5.50); WHITE BLOOD CELL COUNT,WBC 11.5 10^3/uL (4.0-11.0)
[2024-10-18 20:58] LABS: ALBUMIN 3.2 g/dL (3.4-5.0); BILIRUBIN TOTAL 0.2 mg/dL (0.0-1.0); CALCIUM 9.8 mg/dL (8.4-10.1); CREATININE 0.9 mg/dL (0.6-1.0); EST CRCL DRUG DOSING (CG) 65.84 mL/min; POTASSIUM,K 3.9 mEq/L (3.5-5.0); PROTEIN TOTAL,TP 6.3 g/dL (6.4-8.2)
[2024-10-18 22:27] VITALS: BP 134/88; PULSE 65
== END 2024-10-18 21:35 | disposition home or self-care (01) ==
LOC: CC.ED 20:05
DX: I10 Essential (primary) hypertension (principal); K21.9 Gastro-esophageal reflux disease without esophagitis; F17.210 Nicotine dependence, cigarettes, uncomplicated; Z79.899 Other long term (current) drug therapy
CPT/HCPCS: 36415; 80053; 81025; 85025; 99283